=== PATIENT | male | born 1945 | race Caucasian/White ===

== ENCOUNTER 2021-08-19 09:25 | Day surgery (SDC) | payer OTHER ==
[~2021-08-19] VITALS: Ht 190.5 cm; Wt 116.5 kg
[~2021-08-19 09:25] MED LIST: ALLO300 PO; ALPR.5 PO; AMLO10 PO; GABA300 PO; ZESTORETIC 20-251 EA PO
== END 2021-08-19 11:34 | disposition home or self-care (01) ==
LOC: ORSCSDS 09:25
DX: Z12.11 Encounter for screening for malignant neoplasm of colon (principal); D12.2 Benign neoplasm of ascending colon; K62.1 Rectal polyp; I10 Essential (primary) hypertension; D64.9 Anemia, unspecified; E03.9 Hypothyroidism, unspecified; E78.5 Hyperlipidemia, unspecified; N18.9 Chronic kidney disease, unspecified; F41.9 Anxiety disorder, unspecified; Z87.891 Personal history of nicotine dependence; E66.9 Obesity, unspecified; Z68.32 Body mass index [BMI] 32.0-32.9, adult; Z79.899 Other long term (current) drug therapy
CPT/HCPCS: 88305; J2704; J7120

== ENCOUNTER 2021-10-10 17:40 | Emergency (ER) | payer OTHER ==
[~2021-10-10] VITALS: Ht 190.5 cm; Wt 114.3 kg
[2021-10-10 19:53] LABS: Adenovirus Not Detected (NOT DETECT); Bordetella pertussis Not Detected (NOT DETECT); Chlamydophila pneumoniae Not Detected (NOT DETECT); Coronavirus 229E Not Detected (NOT DETECT); Coronavirus HKU1 Not Detected (NOT DETECT); Coronavirus NL63 Not Detected (NOT DETECT); Coronavirus OC43 Not Detected (NOT DETECT); Human Metapneumovirus Not Detected (NOT DETECT); Human Rhinovirus/Enterovirus Not Detected (NOT DETECT); Influenza A/2009-H1 Not Detected (NOT DETECT); Influenza A/H1 Not Detected (NOT DETECT); Influenza A/H3 Not Detected (NOT DETECT); Influenza B Not Detected (NOT DETECT); Mycoplasma pneumoniae Not Detected (NOT DETECT); Parainfluenza Virus 1 Not Detected (NOT DETECT); Parainfluenza Virus 2 Not Detected (NOT DETECT); Parainfluenza Virus 3 Not Detected (NOT DETECT); Parainfluenza Virus 4 Not Detected (NOT DETECT); Respiratory Syncytial Virus Not Detected (NOT DETECT); SARS-Cov-2 (COVID-19), BioFire Not Detected (NOT DETECT)
== END 2021-10-10 22:12 | disposition home or self-care (01) ==
LOC: ER 17:40
PROVIDERS: Emergency Medicine
DX: R50.9 Fever, unspecified (principal); R53.1 Weakness; R79.89 Other specified abnormal findings of blood chemistry; Z79.899 Other long term (current) drug therapy; Z87.891 Personal history of nicotine dependence; Z20.822 Contact with and (suspected) exposure to COVID-19
CPT/HCPCS: 0202U; 36415; 76705; 83605; 93005; 93010; 99284-25

== ENCOUNTER 2021-11-03 13:17 | Observation (INO) | payer OTHER ==
[~2021-11-03] VITALS: Ht 190.5 cm; Wt 108.8 kg
[2021-11-03 14:24] LABS: BASOPHILS ABSOLUTE AUTO 0.06 K/mm3 (0.00-0.23); BASOPHILS PERCENT AUTO 1 % (0-2); EOSINOPHILS ABSOLUTE AUTO 0.35 K/mm3 (0.00-0.68); EOSINOPHILS PERCENT AUTO 4 % (0-6); Hemoglobin 9.4 g/dL (13.5-17.5); IMMATURE GRAN ABSOLUTE AUTO 0.16 K/mm3 (0.00-0.10); IMMATURE GRAN PERCENT AUTO 2 % (0-1); LYMPHOCYTES ABSOLUTE AUTO 1.67 K/mm3 (0.84-5.20); LYMPHOCYTES PERCENT AUTO 19 % (21-46); MONOCYTES ABSOLUTE AUTO 0.41 K/mm3 (0.16-1.47); MONOCYTES PERCENT AUTO 5 % (4-13); Mean Corpuscular HGB 30.7 pg (26.0-34.0); Mean Corpuscular HGB Conc 31.3 g/dL (31.5-36.5); Mean Corpuscular Volume 98 fL (80-100); Mean Platelet Volume 8.7 fL (9.1-12.4); NEUTROPHILS ABSOLUTE AUTO 6.21 K/mm3 (1.96-9.15); NEUTROPHILS PERCENT AUTO 70 % (41-73); Platelet Count 389 K/mm3 (150-400); RDW Coefficient Variation 15.1 % (11.7-14.2); RDW Standard Deviation 53.6 fL (35.1-46.3); Red Blood Cell Count 3.06 M/mm3 (4.30-5.90); White Blood Cell Count 8.86 K/mm3 (4.00-11.30)
[2021-11-03 14:38] LABS: Albumin, Blood 2.6 g/dL (3.4-5.0); Albumin/Globulin Ratio 0.6 (0.8-1.8); Bilirubin, Total 0.3 mg/dL (0.1-1.0); Bun/Creatinine Ratio 26.5 (12.0-20.0); Calcium, Blood 9.7 mg/dL (8.5-10.1); Creatinine, Blood 1.7 mg/dL (0.60-1.20); Globulin, Blood 4.5 g/dL (2.2-4.0); Potassium, Blood 5.5 mmol/L (3.5-5.5); Total Protein, Blood 7.1 g/dL (6.4-8.2)
[2021-11-03 15:29] LABS: Magnesium, Blood 2.1 mg/dL (1.6-2.4)
[2021-11-03 15:34] LABS: Thyroid Stimulating Hormone 3.89 uIU/mL (0.360-4.800)
[2021-11-03 16:36] LABS: Influenza A, PCR NEGATIVE (NEGATIVE); Influenza B, PCR NEGATIVE (NEGATIVE); Resp Syncytial Virus, PCR NEGATIVE (NEGATIVE); SARS-Cov-2 (COVID-19) PCR, MMC NEGATIVE (NEGATIVE)
[2021-11-03 18:38] LABS: IMMATURE RETIC FRACTION 22.5 % (2.3-16.0); RETIC HGB EQUIVALENT 35.5 pg (28.20-36.60); RETICULOCYTE ABSOLUTE 0.081 M/mm3 (0.0200-0.1100); RETICULOCYTE COUNT PERCENT 2.5 % (0.50-2.50)
[2021-11-03 19:15] LABS: Percent Saturation 17.6 % (20.0-50.0)
--- NOTE | 2021-11-04 04:09 | NUR ---
SHIFT SUMMARY CALLED ER AND RECEIVED REPORT FROM MAYRA AMES AT 2000. PT ARRIVED TO ROOM 338 WITH HIS DAUGHTER, JODY. PT IS VERY [place], BUT IS PLEASANT AND COOPERATIVE. PT HAS NO COMPLAINTS AT THIS TIME. PT VS ARE WITHIN NORMAL LIMITS. CALL LIGHT IS WITHIN PT REACH. NEUROPATHY IN L FOOT.
[2021-11-04 05:51] LABS: BASOPHILS ABSOLUTE AUTO 0.07 K/mm3 (0.00-0.23); BASOPHILS PERCENT AUTO 1 % (0-2); EOSINOPHILS ABSOLUTE AUTO 0.36 K/mm3 (0.00-0.68); EOSINOPHILS PERCENT AUTO 4 % (0-6); Hematocrit 27.4 % (37.0-53.0); Hemoglobin 8.5 g/dL (13.5-17.5); IMMATURE GRAN ABSOLUTE AUTO 0.11 K/mm3 (0.00-0.10); IMMATURE GRAN PERCENT AUTO 1 % (0-1); LYMPHOCYTES ABSOLUTE AUTO 1.54 K/mm3 (0.84-5.20); LYMPHOCYTES PERCENT AUTO 19 % (21-46); MONOCYTES ABSOLUTE AUTO 0.44 K/mm3 (0.16-1.47); MONOCYTES PERCENT AUTO 5 % (4-13); Mean Corpuscular HGB 30.6 pg (26.0-34.0); Mean Corpuscular Volume 99 fL (80-100); Mean Platelet Volume 8.3 fL (9.1-12.4); NEUTROPHILS ABSOLUTE AUTO 5.67 K/mm3 (1.96-9.15); NEUTROPHILS PERCENT AUTO 69 % (41-73); Platelet Count 342 K/mm3 (150-400); RDW Coefficient Variation 14.9 % (11.7-14.2); RDW Standard Deviation 53.8 fL (35.1-46.3); Red Blood Cell Count 2.78 M/mm3 (4.30-5.90); White Blood Cell Count 8.19 K/mm3 (4.00-11.30)
[2021-11-04 06:03] LABS: Bun/Creatinine Ratio 29.4 (12.0-20.0); Calcium, Blood 8.8 mg/dL (8.5-10.1); Creatinine, Blood 1.36 mg/dL (0.60-1.20); Potassium, Blood 5.1 mmol/L (3.5-5.5)
--- NOTE | 2021-11-04 14:33 | NUR ---
ORTHO VITALS LYING 141/55 SITTING 121/97 STANDING 160/73
[2021-11-04 15:30] LABS: Bun/Creatinine Ratio 24.1 (12.0-20.0); Calcium, Blood 9.8 mg/dL (8.5-10.1); Creatinine, Blood 1.45 mg/dL (0.60-1.20); Potassium, Blood 5.2 mmol/L (3.5-5.5)
--- NOTE | 2021-11-04 18:16 | NUR ---
PATIENT ADMITTED DUE TO VERTIGO/WEAKNESS. HE EXPERIENCES VERTIGO WHILE STANDING AND BECOMES SOB. ORTHSTATIC VITALS DONE TODAY, SEE PREVIOUS NOTE OR VITALS ENTRY. PATIENT FINISHED ONE BAG OF LR THIS SHIFT AND WAS STARTED ON NS AT 125 PER HOUR. GFR 49, HGB 8.5, RBC 2.78. [facility] FROM [facility] ARE IN THE PROCESS OF BEING OBTAINED. DR. GRANADOS DID HEAR A MILD RIGHT SIDED MURMUR THIS SHIFT. HEART TONES DISTANT.
[2021-11-05 05:31] LABS: BASOPHILS ABSOLUTE AUTO 0.06 K/mm3 (0.00-0.23); BASOPHILS PERCENT AUTO 1 % (0-2); EOSINOPHILS ABSOLUTE AUTO 0.35 K/mm3 (0.00-0.68); EOSINOPHILS PERCENT AUTO 5 % (0-6); Hematocrit 29.2 % (37.0-53.0); IMMATURE GRAN ABSOLUTE AUTO 0.07 K/mm3 (0.00-0.10); IMMATURE GRAN PERCENT AUTO 1 % (0-1); LYMPHOCYTES ABSOLUTE AUTO 1.59 K/mm3 (0.84-5.20); LYMPHOCYTES PERCENT AUTO 21 % (21-46); MONOCYTES ABSOLUTE AUTO 0.43 K/mm3 (0.16-1.47); MONOCYTES PERCENT AUTO 6 % (4-13); Mean Corpuscular HGB 29.8 pg (26.0-34.0); Mean Corpuscular HGB Conc 30.8 g/dL (31.5-36.5); Mean Corpuscular Volume 97 fL (80-100); Mean Platelet Volume 8.5 fL (9.1-12.4); NEUTROPHILS ABSOLUTE AUTO 5.07 K/mm3 (1.96-9.15); NEUTROPHILS PERCENT AUTO 67 % (41-73); Platelet Count 306 K/mm3 (150-400); RDW Standard Deviation 52.7 fL (35.1-46.3); Red Blood Cell Count 3.02 M/mm3 (4.30-5.90); White Blood Cell Count 7.57 K/mm3 (4.00-11.30)
--- NOTE | 2021-11-05 05:50 | NUR ---
A&Ox3-4 WITH EPISODES OF FORGETFULNESS. PLEASANT AND COOPERATIVE WTIH CARE. VSS. NEW IV BAG HUNG EARLY THIS AM. SLEPT T/O SHIFT. NO C/O PAIN OR DISCOMFORT. [facility] BAND REMOVED FROM RT WRIST. NO ACUTE CONCERNS T/O NIGHT. WILL REPORT TO ONCOMING RN.
[2021-11-05 05:52] LABS: Albumin, Blood 2.6 g/dL (3.4-5.0); Albumin/Globulin Ratio 0.6 (0.8-1.8); Bilirubin, Total 0.3 mg/dL (0.1-1.0); Bun/Creatinine Ratio 23.9 (12.0-20.0); Calcium, Blood 9.2 mg/dL (8.5-10.1); Creatinine, Blood 1.17 mg/dL (0.60-1.20); Globulin, Blood 4.5 g/dL (2.2-4.0); Potassium, Blood 4.9 mmol/L (3.5-5.5); Total Protein, Blood 7.1 g/dL (6.4-8.2)
--- NOTE | 2021-11-05 15:52 | NUR ---
PT WHEELED TO DOOR FOR DISCHARGE BY THIS RN. DAUGHTER TAKING PT HOME. NO IV, NO TELE. 1969
--- NOTE | 2021-11-05 15:53 | NUR ---
PT DISCHARGED FROM THE UNIT. IV REMOVED. DISCHARGE INSTRUCTIONS REVIED AND SENT WITH PT. PT WAS ABLE TO DRESS HIMSELF. HE LEFT THE UNIT VIA WHEEL CHAIR. DAUGHTER TO DRIVE HIM HOME.
[2021-11-06 16:10] LABS: A/G RATIO 0.8 (0.7-1.7); ALBUMIN 2.6 g/dL (2.9-4.4); ALPHA-1-GLOBULIN 0.3 g/dL (0.0-0.4); ALPHA-2-GLOBULIN 1.1 g/dL (0.4-1.0); BETA GLOBULIN 1.1 g/dL (0.7-1.3); GAMMA GLOBULIN 1.1 g/dL (0.4-1.8); GLOBULIN, TOTAL 3.6 g/dL (2.2-3.9); IMMUNOGLOBULIN A, QN, SERUM 307 mg/dL (61-437); IMMUNOGLOBULIN G, QN, SERUM 1016 mg/dL (603-1613); IMMUNOGLOBULIN M, QN, SERUM 173 mg/dL (15-143); M-SPIKE Comment: g/dL (Not Observed); PROTEIN, TOTAL, SERUM 6.2 g/dL (6.0-8.5)
[2021-11-07 18:06] LABS: A/G RATIO 0.8 (0.7-1.7); ALBUMIN 2.7 g/dL (2.9-4.4); ALPHA-1-GLOBULIN 0.3 g/dL (0.0-0.4); BETA GLOBULIN 1.2 g/dL (0.7-1.3); GLOBULIN, TOTAL 3.6 g/dL (2.2-3.9); IMMUNOGLOBULIN A, QN, SERUM 312 mg/dL (61-437); IMMUNOGLOBULIN G, QN, SERUM 1032 mg/dL (603-1613); IMMUNOGLOBULIN M, QN, SERUM 171 mg/dL (15-143); M-SPIKE Comment: g/dL (Not Observed); PROTEIN, TOTAL, SERUM 6.3 g/dL (6.0-8.5)
== END 2021-11-05 16:40 | disposition home or self-care (01) ==
LOC: ER 13:17 → MEDS 13:18
PROVIDERS: Student in an Organized Health Care Education/Training Program; ADMIT Internal Medicine
DX: N17.9 Acute kidney failure, unspecified (principal); D64.9 Anemia, unspecified; I10 Essential (primary) hypertension; M10.9 Gout, unspecified; G62.9 Polyneuropathy, unspecified; Z87.891 Personal history of nicotine dependence; Z79.899 Other long term (current) drug therapy; Z20.822 Contact with and (suspected) exposure to COVID-19
CPT/HCPCS: 0241U; 36415; 71046; 76770; 80048; 80053; 82330; 82607; 82728; 82746; 82784; 83036; 83521; 83540; 83550; 83735; 83880; 84155; 84165; 84443; 84484; 85025; 85045; 86334; 93005; 93010; 96360; 96361; 99285-25; A9270; G0378; J7030; J7120

== ENCOUNTER 2023-01-15 09:35 | Observation (INO) | payer OTHER ==
[~2023-01-15] VITALS: Ht 193 cm; Wt 122.3 kg
[2023-01-15] MEDS ORDERED: PREG75 PO (10:21)
[2023-01-15] MEDS ORDERED: DULO30 (10:21)
[2023-01-15] MEDS ORDERED: MAGNESIUM OXID500 MG PO (10:22)
[2023-01-15] MEDS ORDERED: B-1100 M1 PO (10:22)
[2023-01-15 10:23] LABS: BASOPHILS PERCENT AUTO 1 % (0-2); EOSINOPHILS PERCENT AUTO 1 % (0-6); Hematocrit 34.6 % (37.0-53.0); Hemoglobin 11.1 g/dL (13.5-17.5); IMMATURE GRAN ABSOLUTE AUTO 0.45 K/mm3 (0.00-0.10); IMMATURE GRAN PERCENT AUTO 3 % (0-1); LYMPHOCYTES ABSOLUTE AUTO 1.53 K/mm3 (0.84-5.20); LYMPHOCYTES PERCENT AUTO 11 % (21-46); MONOCYTES ABSOLUTE AUTO 0.65 K/mm3 (0.16-1.47); MONOCYTES PERCENT AUTO 5 % (4-13); Mean Corpuscular HGB 29.7 pg (26.0-34.0); Mean Corpuscular HGB Conc 32.1 g/dL (31.5-36.5); Mean Corpuscular Volume 93 fL (80-100); Mean Platelet Volume 9.8 fL (9.1-12.4); NEUTROPHILS ABSOLUTE AUTO 10.66 K/mm3 (1.96-9.15); NEUTROPHILS PERCENT AUTO 79 % (41-73); Platelet Count 320 K/mm3 (150-400); RDW Coefficient Variation 17.4 % (11.7-14.2); RDW Standard Deviation 58.2 fL (35.1-46.3); Red Blood Cell Count 3.74 M/mm3 (4.30-5.90); White Blood Cell Count 13.49 K/mm3 (4.00-11.30)
[2023-01-15] MEDS ORDERED: UNKNOWN INHALER (10:23)
[2023-01-15] MEDS ORDERED: ALBU2.5V5 INH (10:23)
[2023-01-15] MEDS ORDERED: MOME220I INH (10:23)
[2023-01-15 10:44] LABS: Albumin, Blood 3.2 g/dL (3.4-5.0); Albumin/Globulin Ratio 0.9 (0.8-1.8); Bilirubin, Total 0.4 mg/dL (0.1-1.0); Bun/Creatinine Ratio 19.6 (12.0-20.0); Calcium, Blood 8.3 mg/dL (8.5-10.1); Creatinine, Blood 1.02 mg/dL (0.60-1.20); Globulin, Blood 3.7 g/dL (2.2-4.0); Potassium, Blood 4.2 mmol/L (3.5-5.5); Total Protein, Blood 6.9 g/dL (6.4-8.2)
[2023-01-15 11:06] LABS: Influenza A, PCR NEGATIVE (NEGATIVE); Influenza B, PCR NEGATIVE (NEGATIVE); Resp Syncytial Virus, PCR NEGATIVE (NEGATIVE); SARS-Cov-2 (COVID-19) PCR, MMC NEGATIVE (NEGATIVE)
[2023-01-15 14:34] VITALS: BP 158/68
[2023-01-15] MEDS ORDERED: DULO60 PO (14:37)
--- NOTE | 2023-01-15 16:02 | NUR ---
ADMISSION NOTE: PATIENT ARRIVES TO ROOM AT 1430 FROM ED c DX'S OF COPD EXACERBATION. PATIENT A/OX4, SLIGHTLY NEW [place] AND ANSWER TO QUESTIONS APPROPRIATELY. PATIENT ORIENTATED TO ROOM AND CALL SYSTEM. PATIENT DENIES CP/PRESSURE, N/V, DIZZINESS, AND GENERALIZED PAIN. RA, c SPO2 ABOVE 90%. PATIENT REPORTS SOB c ACTIVITIES. NONPRODUCTIVE COUGH, LUNGS CLEAR/DIM T/O TO AUSCULTATIONS. PATIENT REPORTS "USES INHALER OFTEN AT HOME D/T NOT ABLE TO BREATH." PATIENT ON TELE, SR HR IN THE LOW 90'S BPM. ADMISSION, MEDRIC AND SKIN ASSESSMENT c 2 RN VERIFIERS COMPLETED. PATIENT AND 2 DAUGHTERS AT BEDSIDE (JODY AND JOHNATHON) REQUESTED TO HAVE PATIENT CODE STATUS CHANGE FROM LIMITED CODE TO FULL CODE. THIS RN NOTIFIED DR. ANDRE REGARDING THIS REQUEST. RECEIVED ORDER TO CHANGED TO FULL CODE STATUS. PIV TO RAC SALINE LOCKED. CALL LIGHT IN REACH.
--- NOTE | 2023-01-15 17:07 | NUR ---
NOTE: PATIENT BS BEFORE DINNER 362, MEDICATED c 5 UNITS OF INSULIN. NOTIFIED DR. ANDRE REGARDING THIS ISSUE. NO NEW ORDER RECEIVED AT THIS TIME, JUST TO CONTINUE TO MONITOR PATIENT BS.
[2023-01-15 20:18] VITALS: BP 147/68
--- NOTE | 2023-01-16 00:30 | NUR ---
NOTE; NOTIFIED HOSPITALIST OF PTS GLUCOSE BEING 363. NO NEW ORDERS AT THIS TIME.
[2023-01-16 04:58] VITALS: BP 147/76
--- NOTE | 2023-01-16 05:45 | NUR ---
SHIFT SUMMARY PT IS A&OX4, FORGETFUL AND [place]. NORMOTENSIVE, NSR IN THE 90'S (VIA TELEMETRY), AFEBRILE, O2 SATS >90% ON RA. C/O PAIN IN HIS LEFT FOOT AND A SORE THROAT, MANAGED WITH PRN TYLENOL. ON AN ADA DIET, REQUESTING FOOD MULTIPLE TIMES, HS BG WAS 492. AWARE, NEW ORDER FOR LANTUS. VOIDING IN BR, NO BM THIS SHIFT. SBA. CALL LIGHT WITHIN REACH. FIRE SAFETY CHECKS COMPLETED
[2023-01-16 07:22] VITALS: BP 161/83
[2023-01-16 16:00] VITALS: BP 165/77
--- NOTE | 2023-01-16 16:55 | NUR ---
SHIFT SUMMARY: NO NEW ACUTE CHANGES IN PATIENT CONDITION THIS SHIFT. PATIENT A/OX4, [place], AND VERY TALKATIVE. PATIENT PLEASANT AND COOPERATIVE c CARE PROVIDED THIS SHIFT. PATIENT DENIES CP/PRESSURE, DIZZINESS AND N/V. PATIENT REPORTS NONPRODUCTIVE COUGH AND SLIGHT SOB c AMBULATIONS TO BATHROOM. PATIENT REPORTS NEUROPATHIC PAIN 12/01 TO L FOOT, MEDICATED c PO PRN FOR PAIN c "SOME MILD RELIEF 07/01." PATIENT BS RANGES 283-353, MEDICATED c INSULIN COVERAGE PER EMAR. PATIENT HAD ECHO DONE TODAY c RESULT. PATIENT HAS EXCELLENT APPETITE, CONTINENCE OF BOWELS/BLADDER AND AMBULATES TO BATHROOM AND BACK IN BED INDEPENDENTLY T/O SHIFT. PATIENT STARTED ON IV LASIX THIS PM. PATIENT RECEIVED SCHEDULED MEDS PER EMAR. VITAL SIGNS REVIEWED. PIV TO RAC SALINE LOCKED. CALL LIGHT IN REACH.
[2023-01-16 19:52] VITALS: BP 150/87
[2023-01-17 04:26] VITALS: BP 155/83
[2023-01-17 04:31] LABS: Base Excess Venous 4.7 mmol/L; Bicarbonate Venous 28.1 mmol/L (24.0-30.0); pH Blood Venous 7.43 (7.34-7.37)
[2023-01-17 04:50] LABS: BASOPHILS ABSOLUTE AUTO 0.04 K/mm3 (0.00-0.23); BASOPHILS PERCENT AUTO 0 % (0-2); EOSINOPHILS PERCENT AUTO 0 % (0-6); Hematocrit 37.3 % (37.0-53.0); Hemoglobin 12.3 g/dL (13.5-17.5); IMMATURE GRAN ABSOLUTE AUTO 0.47 K/mm3 (0.00-0.10); IMMATURE GRAN PERCENT AUTO 3 % (0-1); LYMPHOCYTES ABSOLUTE AUTO 1.12 K/mm3 (0.84-5.20); LYMPHOCYTES PERCENT AUTO 7 % (21-46); MONOCYTES ABSOLUTE AUTO 0.67 K/mm3 (0.16-1.47); MONOCYTES PERCENT AUTO 4 % (4-13); Mean Corpuscular HGB 29.9 pg (26.0-34.0); Mean Corpuscular Volume 91 fL (80-100); Mean Platelet Volume 10.3 fL (9.1-12.4); NEUTROPHILS ABSOLUTE AUTO 13.72 K/mm3 (1.96-9.15); NEUTROPHILS PERCENT AUTO 86 % (41-73); NRBC ABSOLUTE 0.02 K/mm3 (0.00-0.02); NRBC Auto 0.1 /100 WBC (0.0-0.2); Platelet Count 400 K/mm3 (150-400); RDW Coefficient Variation 17.7 % (11.7-14.2); Red Blood Cell Count 4.11 M/mm3 (4.30-5.90); White Blood Cell Count 16.02 K/mm3 (4.00-11.30)
[2023-01-17 05:08] LABS: Bun/Creatinine Ratio 36.2 (12.0-20.0); Calcium, Blood 8.9 mg/dL (8.5-10.1); Creatinine, Blood 1.16 mg/dL (0.60-1.20); Potassium, Blood 4.5 mmol/L (3.5-5.5)
--- NOTE | 2023-01-17 05:35 | NUR ---
SHIFT SUMMARY PT IS A&OX4, [place]. HYPERTENSIVE, SYS>150, ON TELEMETRY, SR WITH BBB IN THE 80'S, AFERBILE, O2 SATS 95% ON RA. C/O NEUROPATHY PAIN IN L FOOT. PT IS ON AN ADA DIET, BUT DOES NOT FULLY UNDERSTAND WHY HE CAN'T HAVE ICECREAM AND MULTIPLE SNACKS. INDEPENDENT IN ROOM, VOIDING IN BR. BED IN LOWEST POSITION, CALL LIGHT WITHIN REACH. FIRE SAFETY CHECKS COMPLETE
[2023-01-17 07:02] VITALS: BP 124/91
[2023-01-17] MEDS ORDERED: BUDE.25 INH (11:10)
[2023-01-17] MEDS ORDERED: PRED20 PO (11:12)
[2023-01-17] MEDS ORDERED: BASAGLAR K100 UNIT/1 SC (11:13)
[2023-01-17] MEDS ORDERED: FURO80 PO (11:14)
[2023-01-17] MEDS ORDERED: POTCHL20ER PO (11:15)
--- NOTE | 2023-01-17 15:32 | NUR ---
SHIFT/DISCHARGE SUMMARY: NO NEW ACUTE CHANGES IN PATIENT CONDITION THIS SHIFT. PATIENT A/OX4. [place] AND VERY TALKATIVE. PATIENT DENIES CP/PRESSURE, SOB, N/V AND DIZZINESS. AFIBRILE. PATIENT ON TELE, SR HR IN THE 90'S BPM. PATIENT HAD SHOWER AND LINEN CHANGED THIS AM. PATIENT BS BEFORE BREAKFAST 243, AND BEFORE LUNCH WAS 234, MEDICATED c INSULIN COVERAGE PER EMAR. PATIENT HAS EXCELLENT APPETITE, ATE 100% FOR BREAKFAST AND LUNCH. PATIENT CONTINENCE OF BOWELS AND BLADDER AND AMBULATES TO BATHROOM AND BACK IN BED INDEPENDENTLY. PATIENT RECEIVED SCHEDULED MEDS PER EMAR. VITAL SIGNS REVIEWED. PIV TO RAC DC'D. PATIENT DISCHARGE HOME. DISCHARGE INSTRUCTTIONS PACKET GIVEN TO PATIENT. EDUCATE PATIENT AND DAUGHTER AT BEDSIDE REGARDING ADMITTING DX'S OF COPD EXACERBATION, NEW DX'S OF DM TYPE 2, S/S, TX, SELF CARE, BS TESTING, LONG ACTING INSULIN ADMINISTRATION, NEW PRESCRIBED MEDS AND TO FOLLOW UP c PCP. PATIENT AND DAUGHTER VERBALIZED UNDERSTANDING AND NO FURTHER QUESTIONS. PATIENT IS [place] AND [facility]. PATIENT WAS OFFERED TO USE DIFFERENT PHARMACY D/T [facility] IS NOT OPEN TODAY WEDNESDAY AND NOT BE ABLE TO GET THE PRESCRIPTION THAT HE NEEDED THE DOSE TONIGHT, BUT PATIENT REFUSED. PER PATIENT "I DON'T WANT TO SPEND MORE MONEY I RATHER STAYED AT [facility]. RX WAS SENT TO PATIENT PREFERRED PHARMACY ([facility] HARD SCRIPT FOR GLUCOMETER AND STRIPS GIVEN TO PATIENT. PATIENT RECEIVED LONG ACTING INSULIN AT 1506 PER ORDER. ALL PATIENT PERSONAL BELONGINGS WERE SENT HOME c THE PATIENT. PATIENT LEFT THE ROOM AT 1530 AND WAS TRANSPORTED VIA WHEELCHAIR TO PATIENT ENTRANCE BY [facility]ILY [facility] COUNSELLOR STAFF, KUSH EDEN.
== END 2023-01-17 15:30 | disposition home or self-care (01) ==
LOC: ER 09:35 → MEDS 09:36
PROVIDERS: Student in an Organized Health Care Education/Training Program; ADMIT Internal Medicine
DX: J96.02 Acute respiratory failure with hypercapnia (principal); J98.11 Atelectasis; J81.1 Chronic pulmonary edema; R19.6 Halitosis; R91.1 Solitary pulmonary nodule; I10 Essential (primary) hypertension; E11.42 Type 2 diabetes mellitus with diabetic polyneuropathy; J44.9 Chronic obstructive pulmonary disease, unspecified; D53.9 Nutritional anemia, unspecified; E03.9 Hypothyroidism, unspecified; E66.01 Morbid (severe) obesity due to excess calories; Z87.891 Personal history of nicotine dependence; Z79.899 Other long term (current) drug therapy; Z20.822 Contact with and (suspected) exposure to COVID-19
CPT/HCPCS: 0241U; 36415; 70486; 71046; 71260; 80048; 80053; 82803; 82947; 83880; 84145; 84439; 84443; 84484; 85025; 87081; 87430; 93005; 93010; 93306; 94640; 94664; 94760; 94762; 96372; 96374; 96375; 96376; 99285-25; A9270; G0378; J1650; J1815; J1940; J2930; J7512; Q9967

== ENCOUNTER 2023-06-23 14:45 | Emergency (ER) | payer OTHER ==
[~2023-06-23] VITALS: Ht 190.5 cm; Wt 112.0 kg
[~2023-06-23 14:45] MED LIST changes: +ACET500 PO; +ALBU2.5V5 INH; +ALBU90OI INH; +ATOR40TA PO; +Aspir 8181 MG PO; +B-1100 M1 PO; +B-1100 M2 PO; +BASAGLAR K100 UNIT/1 SC; +BREZTRI AEROS10.7 GM INH; +BUDE.25; +BUDE.25 INH; +CYCLOBENZAPRINE5 MG PO; +DULO30; +DULO60 PO; +FURO20 PO; +FURO80 PO; +JARDIANCE25 MG PO; +LOSA25 PO; +MAGNESIUM OXID500 MG PO; +MECL12.5 PO; +METO25ER PO; +MOME220I INH; +MULTI-VITAMIN1 EAC2 PO; +PANT20 PO; +POTCHL20ER PO; +PRED20 PO; +PREG300 PO; +TAMS.4ER PO; +THERA-D2000 UNIT PO; +TORSE20 PO; +UNKNOWN INHALER; +Vibramycin100 MG PO
[2023-06-23 15:16] LABS: BASOPHILS ABSOLUTE AUTO 0.08 K/mm3 (0.00-0.23); BASOPHILS PERCENT AUTO 1 % (0-2); EOSINOPHILS ABSOLUTE AUTO 0.44 K/mm3 (0.00-0.68); EOSINOPHILS PERCENT AUTO 4 % (0-6); Hematocrit 33.1 % (37.0-53.0); Hemoglobin 10.1 g/dL (13.5-17.5); IMMATURE GRAN ABSOLUTE AUTO 0.16 K/mm3 (0.00-0.10); IMMATURE GRAN PERCENT AUTO 2 % (0-1); LYMPHOCYTES ABSOLUTE AUTO 2.29 K/mm3 (0.84-5.20); LYMPHOCYTES PERCENT AUTO 22 % (21-46); MONOCYTES ABSOLUTE AUTO 0.45 K/mm3 (0.16-1.47); MONOCYTES PERCENT AUTO 4 % (4-13); Mean Corpuscular HGB Conc 30.5 g/dL (31.5-36.5); Mean Corpuscular Volume 89 fL (80-100); Mean Platelet Volume 9.8 fL (9.1-12.4); NEUTROPHILS ABSOLUTE AUTO 7.25 K/mm3 (1.96-9.15); NEUTROPHILS PERCENT AUTO 68 % (41-73); Platelet Count 429 K/mm3 (150-400); RDW Coefficient Variation 18.6 % (11.7-14.2); RDW Standard Deviation 59.7 fL (35.1-46.3); Red Blood Cell Count 3.74 M/mm3 (4.30-5.90); White Blood Cell Count 10.67 K/mm3 (4.00-11.30)
[2023-06-23 15:38] LABS: Albumin/Globulin Ratio 0.7 (0.8-1.8); Bilirubin, Total 0.4 mg/dL (0.1-1.0); Bun/Creatinine Ratio 20.1 (12.0-20.0); Calcium, Blood 9.1 mg/dL (8.5-10.1); Creatinine, Blood 1.84 mg/dL (0.60-1.20); Globulin, Blood 4.2 g/dL (2.2-4.0); Potassium, Blood 5.8 mmol/L (3.5-5.5); Total Protein, Blood 7.2 g/dL (6.4-8.2)
[2023-06-23 18:45] VITALS: BP 130/82
== END 2023-06-23 19:20 | disposition home or self-care (01) ==
LOC: ER 14:45
PROVIDERS: Emergency Medicine
DX: K92.2 Gastrointestinal hemorrhage, unspecified (principal); E11.40 Type 2 diabetes mellitus with diabetic neuropathy, unspecified; I10 Essential (primary) hypertension; E78.5 Hyperlipidemia, unspecified; Z87.891 Personal history of nicotine dependence; Z79.82 Long term (current) use of aspirin; Z79.899 Other long term (current) drug therapy
CPT/HCPCS: 80053; 85025; 93005; 93010; 99285-25

== ENCOUNTER 2023-08-11 12:10 | Emergency (ER) | payer OTHER ==
[~2023-08-11] VITALS: Ht 190.5 cm; Wt 109.8 kg
[2023-08-11 12:38] VITALS: BP 105/77
[2023-08-11] MEDS ORDERED: Acetaminophen 325 MG TABLET PO ONE (12:45)
[2023-08-11] MEDS ORDERED: Lidocaine 4% 1 Patch TOP ONE (12:45)
[2023-08-11] MEDS ORDERED: Ketorolac Tromethamine 30mg Vial IM ONE (12:45)
[2023-08-11] MEDS ORDERED: Methocarbamol 500 MG Tab PO ONE (12:45)
[2023-08-11] MEDS ORDERED: Percocet 5-3251 EACH PO (14:53)
[2023-08-11] MEDS ORDERED: CYCL10 PO (14:53)
== END 2023-08-11 14:58 | disposition home or self-care (01) ==
LOC: ER 12:10
DX: M54.31 Sciatica, right side (principal); I10 Essential (primary) hypertension; E11.40 Type 2 diabetes mellitus with diabetic neuropathy, unspecified; J44.9 Chronic obstructive pulmonary disease, unspecified; E78.5 Hyperlipidemia, unspecified; Z79.82 Long term (current) use of aspirin; Z79.899 Other long term (current) drug therapy; Z88.8 Allergy status to other drugs, medicaments and biological substances
CPT/HCPCS: 72170; 96372; 99283-25; A9270; J1885

== ENCOUNTER 2023-10-11 11:45 | Emergency (ER) | payer OTHER ==
[~2023-10-11] VITALS: Ht 190.5 cm; Wt 108.9 kg
[~2023-10-11 11:45] MED LIST changes: +CYCL10 PO; +Percocet 5-3251 EACH PO
[2023-10-11 12:59] LABS: BASOPHILS ABSOLUTE AUTO 0.05 K/mm3 (0.00-0.23); BASOPHILS PERCENT AUTO 1 % (0-2); EOSINOPHILS ABSOLUTE AUTO 0.28 K/mm3 (0.00-0.68); EOSINOPHILS PERCENT AUTO 3 % (0-6); Hematocrit 23.8 % (37.0-53.0); Hemoglobin 7.4 g/dL (13.5-17.5); IMMATURE GRAN ABSOLUTE AUTO 0.32 K/mm3 (0.00-0.10); IMMATURE GRAN PERCENT AUTO 4 % (0-1); LYMPHOCYTES ABSOLUTE AUTO 1.43 K/mm3 (0.84-5.20); LYMPHOCYTES PERCENT AUTO 16 % (21-46); MONOCYTES ABSOLUTE AUTO 0.54 K/mm3 (0.16-1.47); MONOCYTES PERCENT AUTO 6 % (4-13); Mean Corpuscular HGB 29.5 pg (26.0-34.0); Mean Corpuscular HGB Conc 31.1 g/dL (31.5-36.5); Mean Corpuscular Volume 95 fL (80-100); Mean Platelet Volume 9.9 fL (9.1-12.4); NEUTROPHILS ABSOLUTE AUTO 6.38 K/mm3 (1.96-9.15); NEUTROPHILS PERCENT AUTO 71 % (41-73); NRBC ABSOLUTE 0.02 K/mm3 (0.00-0.02); NRBC Auto 0.2 /100 WBC (0.0-0.2); Platelet Count 326 K/mm3 (150-400); RDW Coefficient Variation 19.1 % (11.7-14.2); RDW Standard Deviation 65.1 fL (35.1-46.3); Red Blood Cell Count 2.51 M/mm3 (4.30-5.90)
[2023-10-11 13:19] LABS: Albumin, Blood 3.3 g/dL (3.4-5.0); Bilirubin, Total 0.6 mg/dL (0.1-1.0); Bun/Creatinine Ratio 25.5 (12.0-20.0); Calcium, Blood 8.2 mg/dL (8.5-10.1); Creatinine, Blood 1.37 mg/dL (0.60-1.20); Globulin, Blood 3.2 g/dL (2.2-4.0); Potassium, Blood 3.7 mmol/L (3.5-5.5); Total Protein, Blood 6.5 g/dL (6.4-8.2)
[2023-10-11 13:40] LABS: Source, Urine Clean Catch
[2023-10-11 13:45] LABS: IMMATURE RETIC FRACTION 44.2 % (2.3-16.0); RETIC HGB EQUIVALENT 23.5 pg (28.20-36.60); RETICULOCYTE ABSOLUTE 0.1024 M/mm3 (0.0200-0.1100)
[2023-10-11 13:50] LABS: Appearance, Urine Clear (Clear); Bilirubin, Urine Neg (Neg); Blood, Urine Neg (Neg); Glucose Qualitative, Urine 3+ (Neg); Ketones, Urine Neg (Neg); Leukocyte Esterase, Urine Neg (Neg); Nitrite, Urine Neg (Neg); Protein, Urine Neg (Neg); Urobilinogen, Urine NORM (Normal)
[2023-10-11 14:12] LABS: Color, Urine Pale Yellow (P-Yellow)
[2023-10-11 14:57] LABS: Percent Saturation 4.8 % (20.0-50.0)
[2023-10-11 15:41] VITALS: BP 118/58
== END 2023-10-11 15:41 | disposition home or self-care (01) ==
LOC: ER 11:45
PROVIDERS: Emergency Medicine
DX: R41.0 Disorientation, unspecified (principal); D50.9 Iron deficiency anemia, unspecified; I13.0 Hypertensive heart and chronic kidney disease with heart failure and stage 1 through stage 4 chronic kidney disease, or unspecified chronic kidney disease; I50.9 Heart failure, unspecified; E11.22 Type 2 diabetes mellitus with diabetic chronic kidney disease; N18.30 Chronic kidney disease, stage 3 unspecified; Z79.899 Other long term (current) drug therapy; Z88.8 Allergy status to other drugs, medicaments and biological substances
CPT/HCPCS: 70450; 71045; 80053; 81003; 82140; 83540; 83550; 83880; 85025; 85045; 93005; 93010; 99285-25

== ENCOUNTER 2024-02-10 07:54 | Day surgery (SDC) | payer OTHER ==
[~2024-02-10] VITALS: Ht 188 cm; Wt 112.5 kg
[~2024-02-10 07:54] MED LIST changes: +Balanced Salt Epinephrine Irrigation Solution 500 mL IR SCH; +Lidocaine HCl/Pf 1% 5 ML VIAL XX SCH; +Moxifloxacin HCL 0.5 MG/0.1 ML 0.4MLSYR LEFTEYE SCH; +PHENYLEPHRINE\\TROPICAMIDE\\TETRACAINE OPHTHALMIC DILATING SOLN LEFTEYE PRN; +Povidone-Iodine 450 DROP/30 ML Solution LEFTEYE SCH; +Povidone-Iodine 450 DROP/30 ML Solution ONE; +Tetracaine HCl/Pf 0.5% Opth Soln 4 ml ONE; +Triamcinolone Inj Susp 40 MG / ML 1ML Vial INJ SCH; +Triamcinolone Inj Susp 40 MG / ML 1ML Vial ONE
[2024-02-10] MEDS ORDERED: Diazepam 2 MG Tab ONE (08:21)
[2024-02-10] MEDS ORDERED: POTASSIUM CHLO20 MEQ PO (08:42)
[2024-02-10] MEDS ORDERED: POTCIT10 PO (08:43)
[2024-02-10] MEDS ORDERED: Tetracaine HCl 0.5% Opth Soln 15 ml LEFTEYE ONE (09:09)
[2024-02-10] MEDS ORDERED: Ondansetron HCl 2 MG / ML 2ML Vial ONE (09:12)
[2024-02-10 09:36] VITALS: BP 120/51
== END 2024-02-10 09:52 | disposition home or self-care (01) ==
LOC: ORSCSDS 07:54
PROVIDERS: Ophthalmology
PROC: 08RK3JZ Replacement of Left Lens with Synthetic Substitute, Percutaneous Approach (ICD-10-PCS; principal; 2024-02-10 09:30)
DX: E11.36 Type 2 diabetes mellitus with diabetic cataract (principal); H25.812 Combined forms of age-related cataract, left eye; I12.9 Hypertensive chronic kidney disease with stage 1 through stage 4 chronic kidney disease, or unspecified chronic kidney disease; N18.9 Chronic kidney disease, unspecified; E11.22 Type 2 diabetes mellitus with diabetic chronic kidney disease; I50.9 Heart failure, unspecified; E78.5 Hyperlipidemia, unspecified; E03.9 Hypothyroidism, unspecified; G47.33 Obstructive sleep apnea (adult) (pediatric); K21.9 Gastro-esophageal reflux disease without esophagitis; G62.9 Polyneuropathy, unspecified; E66.9 Obesity, unspecified; Z68.31 Body mass index [BMI] 31.0-31.9, adult; Z79.84 Long term (current) use of oral hypoglycemic drugs; Z79.899 Other long term (current) drug therapy
CPT/HCPCS: 82947; A9270; J2405; J3301; V2632

== ENCOUNTER 2024-03-02 08:04 | Day surgery (SDC) | payer OTHER ==
[~2024-03-02] VITALS: Ht 190.5 cm; Wt 113.0 kg
[~2024-03-02 08:04] MED LIST changes: -Moxifloxacin HCL 0.5 MG/0.1 ML 0.4MLSYR LEFTEYE SCH; +Moxifloxacin HCL 0.5 MG/0.1 ML 0.4MLSYR RIGHTEYE SCH; -PHENYLEPHRINE\\TROPICAMIDE\\TETRACAINE OPHTHALMIC DILATING SOLN LEFTEYE PRN; +PHENYLEPHRINE\\TROPICAMIDE\\TETRACAINE OPHTHALMIC DILATING SOLN RIGHTEYE PRN; +POTASSIUM CHLO20 MEQ PO; +POTCIT10 PO; -Povidone-Iodine 450 DROP/30 ML Solution LEFTEYE SCH; +Povidone-Iodine 450 DROP/30 ML Solution RIGHTEYE SCH
[2024-03-02] MEDS ORDERED: Diazepam 2 MG Tab ONE (08:33)
[2024-03-02] MEDS ORDERED: BREZTRI AEROS10.7 GM IH (08:47)
[2024-03-02 10:04] VITALS: BP 151/70
== END 2024-03-02 10:09 | disposition home or self-care (01) ==
LOC: ORSCSDS 08:04
PROVIDERS: Ophthalmology
PROC: 08RJ3JZ Replacement of Right Lens with Synthetic Substitute, Percutaneous Approach (ICD-10-PCS; principal; 2024-03-02 09:30)
DX: E11.36 Type 2 diabetes mellitus with diabetic cataract (principal); H25.811 Combined forms of age-related cataract, right eye; Z96.1 Presence of intraocular lens; I12.9 Hypertensive chronic kidney disease with stage 1 through stage 4 chronic kidney disease, or unspecified chronic kidney disease; E11.22 Type 2 diabetes mellitus with diabetic chronic kidney disease; N18.9 Chronic kidney disease, unspecified; J44.9 Chronic obstructive pulmonary disease, unspecified; Z79.899 Other long term (current) drug therapy
CPT/HCPCS: 82947; A9270; J3301; V2632